=== PATIENT | male | born 1965 | race Caucasian/White ===

== ENCOUNTER 2017-03-20 04:27 | Day surgery (SDC) | payer BC, MEDICARE ==
[2017-03-14 11:28] LABS: HEMOGLOBIN 16.6 g/dL (13.6-17.8)
[2017-03-14 11:29] LABS: HEMATOCRIT 47.2 % (40.0-51.0)
[2017-03-14 11:45] LABS: BUN (BLOOD UREA NITROGEN) 16 MG/DL (6-23); CALCIUM, SERUM 9.4 MG/DL (8.5-10.4); CHLORIDE, SERUM 104 MMOL/L (96-112); CO2 (CARBON DIOXIDE) 30 MMOL/L (24-34); GFR AFRICAN AMERICAN 113 ML/MIN (>=60); GFR NON AFRICAN AMERICAN 97 ML/MIN (>=60); GLUCOSE, SERUM 118 MG/DL (60-99); SODIUM, SERUM 142 MMOL/L (135-148)
--- NOTE | ~2017-03-20 | OP ---
Record Of Operation [facility] [address] [place]. [address] NAME: ANNABEL FARIAS : 61 STATUS : [facility]#: [id number] AGE: 51 ADM/REG DATE : 03/20/17 MR#: [id number] REPORT SERV DATE: 03/20/17 DICTATED BY: ZARIA BAINS II DATE: 03/20/17 REPORT STATUS : Draft TRANSCRIBED BY: OLIVIER DATE: 03/20/17 DATE OF PROCEDURE: 03/20/2017 PREOPERATIVE DIAGNOSIS: Failed spinal column stimulator battery. POSTOPERATIVE DIAGNOSIS: Failed spinal column stimulator battery and fractured stimulator lead, necessitating revision of both the lead and the battery. PROCEDURE: Thoracic revision lead placement (new lead), and also including placement of new battery generator (CPT 61772). FLUIDS: 1 L lactated Ringer's. ESTIMATED BLOOD LOSS: 10 mL. DRAINS: None. COMPLICATIONS: Antibiotic preoperatively. IMPLANTS: [employer]. DESCRIPTION OF PROCEDURE: The patient was brought to the operating room at his request, and general anesthesia was achieved. He was placed in the prone position. The back was prepped and draped in a sterile fashion. The left-sided battery pocket was opened and the battery was removed. The leads were removed. At this point, we noticed that one of the leads was clearly fractured, but partially intact. We then placed the new battery and evaluated the system with the retail customer service representative. Unfortunately, despite the new battery, the fractured lead would not communicate indicating its structural failure. This overall necessitated the need for a lead revision also for placement of a new lead. At this point, the thoracic incision was re-incised and the laminectomy was identified. The old lead was now removed from the canal. Next, the new lead was then placed into the epidural space at T8-T9. Confirmation occurred confirming the proper placement of the lead. Next, the wires were then subcutaneously tunneled and connected to the new battery. At this point, the system was now found to be functional. The irrigation was performed followed by standard closure. The patient was extubated and transferred to the PACU in stable condition. JOSUÉ/OLIVIER Zaria Bains Record Of Operation [facility] [address] [place]. [address] NAME: ANNABEL FARIAS : 61 STATUS : [facility]#: [id number] AGE: 51 ADM/REG DATE : 03/20/17 MR#: [id number] REPORT SERV DATE: 03/20/17 DICTATED BY: ZARIA BAINS II DATE: 03/20/17 REPORT STATUS : Draft TRANSCRIBED BY: MODL DATE: 03/20/17 Tian MEJIA / [id number] CC: Tian Patten II, M.D.
[~2017-03-20 04:27] MED LIST: *UNABLE3; ALLEGRA 180 MG180 MG PO; ANDROGEL1.25 GM TOP; AVAP150 PO; AVAPRO PO; AVINZA30 PO; BENICAR PO; BENICAR20 PO; BENICAR5 PO; CELEBREX2 PO; CYMBALTA60 PO; FLEX PO; HCTZ25B PO; HUMIRA SC; HYDROCHLOROT25 MG OR; HYDROCHLOROT25 MG PO; KLONO1 PO; LAMICTAL10 PO; LAMICTAL150 MG PO; LAMICTAL200 MG PO; LORT7 PO; LOVAZA1 GM PO; LYRICA200 MG PO; MOBIC15 MG OR; MOVANTIK25 MG PO; NABUMETONE750 MG PO; NEUR600 PO; NEUR800 PO; NORCO1 TA2 PO; NUVIGIL150 MG PO; NUVIGIL250 MG PO; POTASSIUM OTC 99MG PO; PRILO PO; PRILOSEC OTC20 MG PO; PROVIGIL1 PO; PROZ10 PO; PROZAC PO; PROZAC20 MG OR; RELA5 PO; SIMPONI SC; STOOL SOFTEN100 MG PO; SUBOXONE 2 MG-1 EAC1 SL; TRAMADOL HCL50 MG OR; ULTRAM ER100 MG PO; ULTRAM50 PO; VOLTAREN1 % TOP
== END 2017-03-20 11:12 | disposition home or self-care (01) ==
LOC: SDC 04:27
PROVIDERS: Orthopaedic Surgery
PROC: 00HU3MZ Insertion of Neurostimulator Lead into Spinal Canal, Percutaneous Approach (ICD-10-PCS; 2017-03-20)
PROC: 0JWT0MZ Revision of Stimulator Generator in Trunk Subcutaneous Tissue and Fascia, Open Approach (ICD-10-PCS; 2017-03-20)
PROC: 00PU3MZ Removal of Neurostimulator Lead from Spinal Canal, Percutaneous Approach (ICD-10-PCS; principal; 2017-03-20 05:45)
DX: T85.112A Breakdown (mechanical) of implanted electronic neurostimulator of spinal cord electrode (lead), initial encounter (principal); I10 Essential (primary) hypertension; F31.9 Bipolar disorder, unspecified; G47.33 Obstructive sleep apnea (adult) (pediatric); Z46.2 Encounter for fitting and adjustment of other devices related to nervous system and special senses; Z86.718 Personal history of other venous thrombosis and embolism; Z88.8 Allergy status to other drugs, medicaments and biological substances; Z79.899 Other long term (current) drug therapy; Z98.890 Other specified postprocedural states
CPT/HCPCS: 80048; 85014; 85018; 93005; C1767; C1778; C1787; J0690; J1030; J2250; J2405; J2710; J3010; J3370